=== PATIENT | male | born 1960 | race Caucasian/White ===

== ENCOUNTER 2022-07-29 06:36 | Day surgery (SDC) | payer OTHER ==
[~2022-07-29] VITALS: Ht 165.1 cm; Wt 72.6 kg
[~2022-07-29 06:36] MED LIST: COZAAR50 MG PO; LIPITOR20 MG PO
[2022-07-29] MEDS ORDERED: LEVOFLOXACIN500 MG PO (16:09)
[2022-07-29] MEDS ORDERED: TRAMADOL HCL50 MG PO (16:09)
== END 2022-07-29 16:55 | disposition home or self-care (01) ==
LOC: CIR.AMB 06:36
PROVIDERS: ATTEND Surgery
DX: N40.1 Benign prostatic hyperplasia with lower urinary tract symptoms (principal); R33.9 Retention of urine, unspecified; I10 Essential (primary) hypertension; F12.90 Cannabis use, unspecified, uncomplicated; Z20.822 Contact with and (suspected) exposure to COVID-19

== ENCOUNTER 2022-10-06 07:01 | Emergency (ER) | payer OTHER ==
[~2022-10-06] VITALS: Ht 165.1 cm; Wt 72.6 kg
[~2022-10-06 07:01] MED LIST changes: +LEVOFLOXACIN500 MG PO; +TRAMADOL HCL50 MG PO
[2022-10-06] MEDS ORDERED: TAMS0.4C PO (07:13)
== END 2022-10-06 11:36 | disposition home or self-care (01) ==
LOC: ER 07:01
DX: R30.0 Dysuria (principal); N50.811 Right testicular pain

== ENCOUNTER 2023-01-03 12:44 | Emergency (ER) | payer OTHER ==
[~2023-01-03] VITALS: Ht 165.1 cm; Wt 72.6 kg
[~2023-01-03 12:44] MED LIST changes: +TAMS0.4C PO
[2023-01-03] MEDS ORDERED: CLONAZEPAM0.5 MG PO (12:54)
[2023-01-03] MEDS ORDERED: ATORVASTATIN CA20 MG PO (12:54)
== END 2023-01-03 18:00 | disposition home or self-care (01) ==
LOC: ER 12:44
DX: M54.50 Low back pain, unspecified (principal); I10 Essential (primary) hypertension; M43.10 Spondylolisthesis, site unspecified

== ENCOUNTER 2023-01-28 06:44 | Emergency (ER) | payer OTHER ==
[~2023-01-28] VITALS: Ht 165.1 cm; Wt 72.6 kg
[~2023-01-28 06:44] MED LIST changes: +ATORVASTATIN CA20 MG PO; +CLONAZEPAM0.5 MG PO
[2023-01-28] MEDS ORDERED: PYRIDIUM DS200 MG PO (10:49)
[2023-01-28] MEDS ORDERED: LEVOFLOXACIN500 MG PO (10:49)
== END 2023-01-28 10:57 | disposition home or self-care (01) ==
LOC: ER 06:44
DX: N39.0 Urinary tract infection, site not specified (principal); I10 Essential (primary) hypertension; N40.0 Benign prostatic hyperplasia without lower urinary tract symptoms

== ENCOUNTER 2023-02-03 07:07 | Emergency (ER) | payer OTHER ==
[~2023-02-03] VITALS: Ht 165.1 cm; Wt 72.6 kg
[~2023-02-03 07:07] MED LIST changes: +PYRIDIUM DS200 MG PO
== END 2023-02-03 11:18 | disposition home or self-care (01) ==
LOC: ER 07:07
DX: N20.9 Urinary calculus, unspecified (principal); N20.0 Calculus of kidney

== ENCOUNTER 2023-02-12 07:08 | Emergency (ER) | payer OTHER ==
[~2023-02-12] VITALS: Ht 165.1 cm; Wt 71.7 kg
== END 2023-02-12 12:37 | disposition home or self-care (01) ==
LOC: ER 07:08
DX: R10.30 Lower abdominal pain, unspecified (principal); R10.9 Unspecified abdominal pain; I10 Essential (primary) hypertension
CPT/HCPCS: 36415; 74177; Q9965

== ENCOUNTER 2023-02-17 06:58 | Emergency (ER) | payer OTHER ==
[~2023-02-17] VITALS: Ht 165.1 cm; Wt 72.6 kg
== END 2023-02-17 15:09 | disposition home or self-care (01) ==
LOC: ER 06:58
DX: R10.84 Generalized abdominal pain (principal)

== ENCOUNTER 2023-02-27 12:09 | Emergency (ER) | payer OTHER ==
[~2023-02-27] VITALS: Ht 165.1 cm; Wt 71.7 kg
== END 2023-02-27 19:12 | disposition home or self-care (01) ==
LOC: ER 12:09
DX: R10.12 Left upper quadrant pain (principal); R10.84 Generalized abdominal pain

== ENCOUNTER 2023-03-02 06:51 | Emergency (ER) | payer OTHER ==
[~2023-03-02] VITALS: Ht 165.1 cm; Wt 70.3 kg
[2023-03-02] MEDS ORDERED: FAMOTIDINE40 MG PO (07:29)
[2023-03-02] MEDS ORDERED: LEVSIN/SL0.125 MG SL (08:45)
== END 2023-03-02 09:50 | disposition home or self-care (01) ==
LOC: ER 06:51
DX: R10.13 Epigastric pain (principal)

== ENCOUNTER 2023-08-17 06:34 | Emergency (ER) | payer OTHER ==
[~2023-08-17] VITALS: Ht 165.1 cm; Wt 67.1 kg
[~2023-08-17 06:34] MED LIST changes: +FAMOTIDINE40 MG PO; +LEVSIN/SL0.125 MG SL
[2023-08-17] MEDS ORDERED: PYRIDIUM100 M1 (06:41)
[2023-08-17 08:18] LABS: HEMATOCRIT 38.8 % (39.0-48.0); HEMOGLOBIN 13.3 g/dL (13-16.00); MEAN CELL VOLUME 94.2 fL (80.0-100.00); MEAN CORPUSCULAR HEMOGLOBIN 32.3 pg (27.00-32.0); MEAN CORPUSCULAR HGB CONC 34.3 g/dl (32.0-36.0); PLATELET COUNT 468 K/uL (150-450); RED BLOOD COUNT 4.12 M/uL (4.00-6.00); RED CELL DISTRIBUTION WIDTH 13.3 % (11.5-14.5)
[2023-08-17 08:43] LABS: ALBUMIN 3.5 gm/dL (3.4-5.0); BILIRUBIN TOTAL 0.54 mg/dL (0.3-1.2); CALCIUM 9.1 mg/dL (8.5-10.1); CREATININE SERUM 0.81 mg/dL (0.70-1.30); GFR 96.88; GLOBULINA 3.8 G/DL (2.4-3.5); POTASSIUM 3.85 mEq/L (3.5-5.1); TOTAL PROTEIN 7.3 gm/dL (6.4-8.2)
[2023-08-17 08:44] LABS: INR 1.05; PARTIAL THROMBOPLASTIN TIME 29.2 SECONDS (22.0-34.0)
[2023-08-17 08:48] LABS: URINE APPEARANCE Clear; URINE BILIRRUBIN Negative (NEGATIVE); URINE BLOOD Negative; URINE COLOR Dark Yellow; URINE GLUCOSE Negative (NEGATIVE); URINE LEUKOCYTE Negative; URINE NITRATE Positive; URINE PROTEIN Negative (NEGATIVE)
[2023-08-17 08:49] LABS: URINE RBC 9.1 uL (0.0-20.8)
[2023-08-17 08:53] LABS: URINE BACTERIA 1.2 uL (0.0-1933); URINE EPITHELIAL CELLS 0.1 uL (0.0-38.8); URINE WBC 0.4 uL (0.0-23.2)
[2023-08-17] MEDS ORDERED: CIPRO500 MG PO (09:08)
[2023-08-17] MEDS ORDERED: PEPCID AC20 MG PO (09:08)
== END 2023-08-17 09:30 | disposition home or self-care (01) ==
LOC: ER 06:35
PROVIDERS: General Practice
DX: R30.0 Dysuria (principal); N39.0 Urinary tract infection, site not specified; I10 Essential (primary) hypertension

== ENCOUNTER 2023-09-04 07:15 | Outpatient (CLI) | payer OTHER ==
[~2023-09-04 07:15] MED LIST changes: +CIPRO500 MG PO; +PEPCID AC20 MG PO; +PYRIDIUM100 M1
== END 2023-09-04 07:16 | disposition home or self-care (01) ==
LOC: TOM 07:15
DX: N20.0 Calculus of kidney (principal)

== ENCOUNTER → 2023-10-14 | Emergency (ER) | payer OTHER ==
[~2023-10-14] VITALS: Ht 165.1 cm; Wt 68.0 kg
[~2023-10-14] MED LIST changes: +VALACYCLOVIR500 MG PO
[2023-10-14 09:15] LABS: HEMATOCRIT 42.4 % (39.0-48.0); HEMOGLOBIN 14.8 g/dL (13-16.00); MEAN CELL VOLUME 95.4 fL (80.0-100.00); MEAN CORPUSCULAR HEMOGLOBIN 33.3 pg (27.00-32.0); MEAN CORPUSCULAR HGB CONC 34.9 g/dl (32.0-36.0); PLATELET COUNT 339 K/uL (150-450); RED BLOOD COUNT 4.44 M/uL (4.00-6.00); RED CELL DISTRIBUTION WIDTH 13.3 % (11.5-14.5)
[2023-10-14 09:16] LABS: PH,URINE 7.5 (5.0-8.0); URINE APPEARANCE Clear; URINE BILIRRUBIN Small (NEGATIVE); URINE BLOOD Trace; URINE COLOR Dark Yellow; URINE GLUCOSE Negative (NEGATIVE); URINE LEUKOCYTE Negative; URINE NITRATE Positive; URINE PROTEIN Negative (NEGATIVE)
[2023-10-14 09:17] LABS: URINE RBC 9.4 uL (0.0-20.8)
[2023-10-14 09:19] LABS: URINE BACTERIA 2.5 uL (0.0-1933); URINE EPITHELIAL CELLS 0.3 uL (0.0-38.8); URINE WBC 0.9 uL (0.0-23.2)
[2023-10-14 09:51] LABS: CALCIUM 9.7 mg/dL (8.5-10.1); CREATININE SERUM 1.02 mg/dL (0.70-1.30); GFR 74.25; POTASSIUM 4.15 mEq/L (3.5-5.1)
== END | disposition home or self-care (01) ==
LOC: ER 06:36
PROVIDERS: General Practice
DX: N34.2 Other urethritis (principal); I10 Essential (primary) hypertension

== ENCOUNTER 2024-04-18 06:40 | Emergency (ER) | payer OTHER ==
[~2024-04-18] VITALS: Ht 165.1 cm; Wt 68.0 kg
[2024-04-18] MEDS ORDERED: LACTOBACILLUS ACIDOPHILUS 1 CAP CAP PO STA (08:23)
[2024-04-18 08:49] LABS: HEMATOCRIT 40.9 % (39.0-48.0); HEMOGLOBIN 14.3 g/dL (13-16.00); MEAN CELL VOLUME 94.1 fL (80.0-100.00); MEAN CORPUSCULAR HEMOGLOBIN 32.9 pg (27.00-32.0); MEAN CORPUSCULAR HGB CONC 34.9 g/dl (32.0-36.0); PLATELET COUNT 343 K/uL (150-450); RED BLOOD COUNT 4.34 M/uL (4.00-6.00); RED CELL DISTRIBUTION WIDTH 12.4 % (11.5-14.5)
[2024-04-18 09:22] LABS: CALCIUM 9.3 mg/dL (8.5-10.1); CREATININE SERUM 0.91 mg/dL (0.70-1.30); GFR 84.42; POTASSIUM 4.18 mEq/L (3.5-5.1)
[2024-04-18 09:49] LABS: PH,URINE 5.5 (5.0-8.0); URINE APPEARANCE Clear; URINE BILIRRUBIN Negative (NEGATIVE); URINE BLOOD Small; URINE COLOR Yellow; URINE GLUCOSE Negative (NEGATIVE); URINE KETONE Negative (NEGATIVE); URINE LEUKOCYTE Negative; URINE NITRATE Negative; URINE PROTEIN Negative (NEGATIVE); URINE UROBILINOGEN 0.2 E.U./dl
[2024-04-18 09:50] LABS: URINE BACTERIA 7.5 uL (0.0-1933); URINE EPITHELIAL CELLS 1.5 uL (0.0-38.8); URINE RBC 15.8 uL (0.0-20.8)
[2024-04-18 09:52] LABS: URINE WBC 1.6 uL (0.0-23.2)
== END 2024-04-18 10:06 | disposition home or self-care (01) ==
LOC: ER 06:42
PROVIDERS: General Practice
DX: R10.2 Pelvic and perineal pain (principal); R10.9 Unspecified abdominal pain

== ENCOUNTER 2024-05-13 08:14 | Emergency (ER) | payer OTHER ==
[~2024-05-13] VITALS: Ht 294.6 cm; Wt 68.0 kg
[2024-05-13] MEDS ORDERED: TAMSULOSIN HCL0.4 MG PO (08:31)
[2024-05-13] MEDS ORDERED: AMOXICILLIN500 MG PO (08:32)
[2024-05-13] MEDS ORDERED: CIALIS5 MG PO (08:33)
[2024-05-13] MEDS ORDERED: KETOROLAC TROMETHAMINE 60 MG VIAL IM STA (09:09)
[2024-05-13 09:43] LABS: HEMOGLOBIN 14.1 g/dL (13-16.00); MEAN CELL VOLUME 93.1 fL (80.0-100.00); MEAN CORPUSCULAR HEMOGLOBIN 32.9 pg (27.00-32.0); MEAN CORPUSCULAR HGB CONC 35.3 g/dl (32.0-36.0); PLATELET COUNT 312 K/uL (150-450); RED CELL DISTRIBUTION WIDTH 12.4 % (11.5-14.5)
[2024-05-13 10:32] LABS: CALCIUM 10.1 mg/dL (8.5-10.1); CREATININE SERUM 0.89 mg/dL (0.70-1.30); GFR 86.61; POTASSIUM 4.04 mEq/L (3.5-5.1)
== END 2024-05-13 11:12 | disposition home or self-care (01) ==
LOC: ER 08:16
PROVIDERS: General Practice
DX: R07.9 Chest pain, unspecified (principal); I10 Essential (primary) hypertension
CPT/HCPCS: 36415; 71045; 93005; 96372; 99283; J1885

== ENCOUNTER 2024-05-27 07:26 | Outpatient (CLI) | payer OTHER ==
[~2024-05-27 07:26] MED LIST changes: +AMOXICILLIN500 MG PO; +CIALIS5 MG PO; +TAMSULOSIN HCL0.4 MG PO
== END 2024-05-27 07:49 | disposition home or self-care (01) ==
LOC: TOM 07:26
DX: N20.0 Calculus of kidney (principal)

== ENCOUNTER 2025-03-19 06:57 | Emergency (ER) | payer OTHER ==
[~2025-03-19] VITALS: Ht 165.1 cm; Wt 72.6 kg
[2025-03-19] MEDS ORDERED: TOLTERODINE TART4 MG PO (07:28)
[2025-03-19] MEDS ORDERED: KETOROLAC TROMETHAMINE 60 MG VIAL IM ONE ×2 (08:29→08:30)
== END 2025-03-19 09:12 | disposition home or self-care (01) ==
LOC: ER 07:12
DX: H92.01 Otalgia, right ear (principal)

== ENCOUNTER 2025-03-24 11:54 | Outpatient (CLI) | payer OTHER ==
[~2025-03-24 11:54] MED LIST changes: +TOLTERODINE TART4 MG PO
== END 2025-03-24 12:05 | disposition home or self-care (01) ==
LOC: TOM 11:54
PROVIDERS: ATTEND General Practice
DX: H92.02 Otalgia, left ear (principal)

== ENCOUNTER 2025-04-09 08:57 | Emergency (ER) | payer OTHER ==
[~2025-04-09] VITALS: Ht 165.1 cm; Wt 72.6 kg
[2025-04-09] MEDS ORDERED: ACETAMINOPHEN 500 MG GEL..CAP PO ONE ×2 (09:31→09:45)
[2025-04-09 09:45] LABS: BASO % 0.8 % (0.1-1.2); EOS # 0.17 (0.04-0.54); EOS % 2.3 % (0.7-7.0); LYMPH # 1.67 (1.18-3.74); LYMPH % 22.5 % (19.3-53.1); MEAN PLATELET VOLUME 7.90 fl (9.4-12.4); MONO # 0.47 (0.24-0.82); MONO % 6.3 % (4.7-12.5); NEUT # 5.00 (1.56-6.13); NEUT % 67.6 % (34.0-71.1); RED CELL DISTRIBUTION WIDTH 12.9 % (11.6-14.4)
== END 2025-04-09 10:17 | disposition home or self-care (01) ==
LOC: ER 08:57
PROVIDERS: General Practice
DX: B34.9 Viral infection, unspecified (principal); I10 Essential (primary) hypertension